=== PATIENT | male | born 1955 | race Caucasian/White ===

== ENCOUNTER 2022-03-03 09:04 | Outpatient (CLI) | payer MEDICARE, BC, SELFPAY ==
--- NOTE | ~2022-03-03 | US_ITS ---
EXAMINATION: US aorta [facility] DATE: 03/03/2022 09:58 INDICATION: Encounter for screening for cardiovascular disorder. Abdominal aortic aneurysm screening. TECHNIQUE: Grayscale, color Doppler, and pulsed Doppler images of the aorta and common iliac arteries were obtained. COMPARISON: None. FINDINGS: The proximal aorta measures 2.0 cm. The mid aorta measures 2.1 cm. The distal aorta measures 2.8 cm. Small amount of nonhemodynamically significant atherosclerotic plaque along the abdominal aorta. The right common iliac artery measures 1.1 cm. The left common iliac artery measures 0.9 cm. IMPRESSION: 1. Nonhemodynamically significant atherosclerotic plaque along the normal caliber abdominal aorta. No aneurysm. Reviewed, dictated and finalized at location A. IMPRESSION: 1. Nonhemodynamically significant atherosclerotic plaque along the normal calib er abdominal aorta. No aneurysm.
--- NOTE | ~2022-03-03 | CT_ITS ---
EXAMINATION: CT lung screening DATE: 03/03/2022 09:24 INDICATION: Personal history of nicotine dependence, current smoker with 47 pack year history TECHNIQUE: Computed tomography (CT) of the chest was performed without intravenous contrast. The dose -length product (DLP) was 78.67 mGy-cm. Automated exposure control and iterative reconstruction techn [employer] were employed. COMPARISON: None FINDINGS: There is mild emphysema. Calcified pulmonary nodules are consistent with old granulomatous disease. The lungs are free of acute opacities. No pathologically enlarged thoracic lymph nodes are i dentified. The heart size is normal. Calcified coronary artery atherosclerosis is noted. There is mil d thoracic spondylosis. Cholelithiasis is noted. IMPRESSION: 1. Lung-RADS category 1: Negative. Continue annual screening with noncontrast low-dose chest CT in 12 months. Reviewed, dictated and finalized at location A. IMPRESSION: 1. Lung-RADS category 1: Negative. Continue annual screening with noncontrast l ow-dose chest CT in 12 months.
== END 2022-03-03 09:05 | disposition home or self-care (01) ==
LOC: ANHIMG 09:09
PROVIDERS: PCP Family Medicine; Visit Provider Family Medicine
DX: Z12.2 Encounter for screening for malignant neoplasm of respiratory organs (principal); F17.210 Nicotine dependence, cigarettes, uncomplicated; Z13.6 Encounter for screening for cardiovascular disorders
CPT/HCPCS: 71271; 76706

== ENCOUNTER 2022-08-14 10:01 | Outpatient (CLI) | payer MEDICARE, BC, SELFPAY ==
[2022-08-14 20:41] LABS: Alanine Aminotransferase 18 U/L (6-50); Albumin Level 4.4 g/dL (3.5-5.1); Alkaline Phosphatase 58 U/L (38-126); Anion Gap 15 mmol/L (8-16); Aspartate Amino Transferase 21 U/L (17-59); Bilirubin,Total 0.3 mg/dL (0.2-1.3); Blood Urea Nitrogen 18 mg/dL (9-20); Calcium 9.4 mg/dL (8.4-10.2); Carbon Dioxide 27 mmol/L (22-30); Chloride 100 mmol/L (98-107); Cholesterol 152 mg/dL (0-200); Estimated Glomerular Filt Rate 51; Glucose 80 mg/dL (65-110); HDL Direct 37 mg/dL; Potassium 3.4 mmol/L (3.4-5.0); Sodium 142 mmol/L (137-145); Triglycerides 149 mg/dL (<150)
[2022-08-14 20:52] LABS: LDL Cholesterol Direct 84 mg/dL
== END 2022-08-14 10:02 | disposition home or self-care (01) ==
LOC: ANHGOSHLAB 10:04
PROVIDERS: PCP Family Medicine; Visit Provider Nurse Practitioner Family
DX: I10 Essential (primary) hypertension (principal)
CPT/HCPCS: 36415; 80053; 80061

== ENCOUNTER 2022-08-20 14:13 | Outpatient (RCR) | payer MEDICARE, BC, SELFPAY ==
--- NOTE | 2022-08-20 16:53 | PTOPEVDC ---
Assessment and note entered by Vasyl Silva, PT Thank you for referring Clarke Douglas to [facility].? An evaluation has been completed. No further treatment is needed. Evaluation Information Assessment Status Evaluation Diagnosis unspecified abnormalities of gait and mobility Subjective Information Patient and disagree about extent of issues. They both agree that patient has not fallen, with saying he has stumbles that he catches himself and patient stating he only stumbles when the dog's leash gets wrapped around him. Reported Pain Level Pain Score 0: Self Report Assessment PT Clinical Summary Clarke is a 67 year old male coming into the clinic with a diagnosis of unspecified abnormalities of gait and mobility. Patient feels he is fine, but and reportedly daughter is worried that he walks very slow and is a falling risk. Patient able to correctly identify 9/10 Semes Luis Fernando filament locations on ELISHA feet, Scores a 25/28 on his Tinetti, a 25/26 on his dynamic gait index which would be indicative of a low fall risk. Patient is walking almost 500' slower than is normal based on his 6 minute walk test, but demonstrates good feet clearance step through gait pattern, although does veer to the R when walking. Patient and family are supposed to go to [place] next week for the winter season, the next 4 months. Physical therapy gave patient and recommendations to keep walking and if concerned try single limb stance exercises. Did not pick up driver patient. Plan of Care PT Services Indicated No Treatment Frequency and evaluation only Duration
== END 2022-08-21 16:35 | disposition home or self-care (01) ==
LOC: ANHGOSHPT 14:13
PROVIDERS: PCP Family Medicine; Visit Provider Nurse Practitioner Family
DX: R26.9 Unspecified abnormalities of gait and mobility (principal)
CPT/HCPCS: 97161

== ENCOUNTER 2024-02-18 12:44 | Outpatient (CLI) | payer MEDICARE, BC, SELFPAY ==
[2024-02-18 19:22] LABS: Basophils Absolute Auto 0.1 K/mm3 (0.0-0.1); Eosinophils Absolute Auto 0.1 K/mm3 (0-0.3); Eosinophils Percent Auto 1.4 % (0-4.4); Hematocrit 45.5 % (42.0-52.0); Hemoglobin 14.8 g/dL (14.0-18.0); Immature Granulocyte Absolute 0.01 K/mm3 (0.00-0.031); Immature Granulocyte Percent A 0.1 % (0-0.5); Lymphocytes Absolute Auto 2.84 K/mm3 (0.9-3.2); Mean Corpuscular HGB Conc 32.5 g/dl (32-36); Mean Corpuscular Hemoglobin 31.2 pg (26-34); Mean Platelet Volume 9.2 fl (7.4-10.4); Monocytes Absolute Auto 0.7 K/mm3 (0.1-0.6); Monocytes Percent Auto 7.5 % (2.6-8.5); Neutrophils Absolute Auto 5.7 K/mm3 (1.3-6.7); Platelet Count Result 380 k/mm3 (150-375); Red Blood Count 4.74 M/mm3 (4.6-6.20); White Blood Count 9.5 K/mm3 (4.5-10.0)
[2024-02-18 21:56] LABS: Vitamin D 25 Hydroxy 53.9 ng/mL
[2024-02-18 22:44] LABS: Alanine Aminotransferase 16 U/L (6-50); Albumin Level 4.4 g/dL (3.5-5.1); Alkaline Phosphatase 78 U/L (38-126); Anion Gap 8 mmol/L (4-12); Aspartate Amino Transferase 46 U/L (17-59); Bilirubin,Total 0.5 mg/dL (0.2-1.3); Blood Urea Nitrogen 20 mg/dL (9-20); Calcium 9.6 mg/dL (8.4-10.2); Carbon Dioxide 26 mmol/L (22-30); Chloride 105 mmol/L (98-107); Cholesterol 151 mg/dL (0-200); Estimated Glomerular Filt Rate 51; Glucose 83 mg/dL (65-110); HDL Direct 45 mg/dL; Potassium 4.4 mmol/L (3.4-5.0); Sodium 139 mmol/L (137-145); Triglycerides 78 mg/dL (<150)
[2024-02-18 22:56] LABS: LDL Cholesterol Direct 86 mg/dL
[2024-02-18 23:12] LABS: Prostate Specific Antigen 2.8 ng/mL (< OR = 4.0)
== END 2024-02-18 12:45 | disposition home or self-care (01) ==
PROVIDERS: PCP Family Medicine; Visit Provider Family Medicine
DX: I10 Essential (primary) hypertension (principal); Z12.5 Encounter for screening for malignant neoplasm of prostate; E55.9 Vitamin D deficiency, unspecified; E53.8 Deficiency of other specified B group vitamins
CPT/HCPCS: 36415; 80053; 80061; 82306; 82607; 84153; 84443; 85025; G0103

== ENCOUNTER 2024-02-18 16:04 | Outpatient (CLI) | payer MEDICARE, BC, SELFPAY ==
--- NOTE | ~2024-02-18 | CT_ITS ---
EXAMINATION:CT lung screening DATE: 02/18/2024 16:53 INDICATION: Personal history of nicotine dependence. Current smoker with 30 pack year history. TECHNIQUE: Computed tomography (CT) of the chest was performed without intravenous contrast. Automate d exposure control and iterative reconstruction technique were employed. The dose-length product (DLP ) was 85.95 mGy-cm. COMPARISON: Chest CT 03/03/2022 FINDINGS: Calcified bilateral pulmonary nodules are consistent with old granulomatous disease. There is a 4 mm nodule at left major fissure. No pleural effusion. The heart size is normal. There are laz nary artery calcifications. No pericardial effusion. There is a 2.0 cm mass measuring low attenuation in left adrenal gland, consistent with an adenoma. There is a gallstone in the gallbladder, which is normal in size. There is an old healed right rib fracture. There is severe cervical spondylosis and mild thoracic spondylosis. There is a chronic compression fracture of T3. IMPRESSION: 1. Lung-RADS category 2: Benign appearance or behavior. Continue annual screening with noncontrast lo w-dose chest CT in 12 months. Reviewed, dictated and finalized at location E. IMPRESSION: 1. Lung-RADS category 2: Benign appearance or behavior. Continue annual screeni ng with noncontrast low-dose chest CT in 12 months.
== END 2024-02-18 16:05 | disposition home or self-care (01) ==
LOC: ANHIMG 16:05
PROVIDERS: PCP Family Medicine; Visit Provider Family Medicine
DX: Z12.2 Encounter for screening for malignant neoplasm of respiratory organs (principal); Z87.891 Personal history of nicotine dependence
CPT/HCPCS: 36415; 71271; 80053; 80061; 82306; 82607; 84153; 84443; 85025; G0103

== ENCOUNTER 2024-09-16 10:30 | Outpatient (CLI) | payer MEDICARE, BC, SELFPAY ==
--- NOTE | ~2024-09-16 | MR_ITS ---
EXAMINATION: MR brain/brain stem wo con DATE: 09/16/2024 10:11 INDICATION: Transient cerebral ischemic attack TECHNIQUE: Magnetic resonance imaging (MRI) of the brain and brainstem was performed without intraven ous contrast. Sequences included sagittal and axial T1-weighted SE, axial diffusion-weighted FS SE, a xial 3D SWAN, axial T2-weighted FLAIR, and axial T2-weighted FSE. Postcontrast axial and coronal T1-w eighted SE was obtained. Apparent diffusion coefficient (ADC) maps were created. COMPARISON: 01/04/2019 FINDINGS: Unchanged large region of encephalomalacia involving the right frontal, parietal, temporal and occipi tariq lobes as well as the underlying right insula and lateral aspect of the right basal ganglia and th e vascular distribution of the right middle cerebral artery consistent with chronic infarct. There ar e no areas of restricted diffusion to suggest acute infarction. No intracranial hemorrhage or abnorma l intracranial mass lesion. No significant change in scattered areas of nonspecific increased T2-weig hted signal intensity in the cerebral white matter, predominantly involving the deep and periventricu lar white matter. There are no intraparenchymal signal abnormalities seen on the other pulse sequence s. Expected dilation of the right lateral ventricle. Remaining ventricles are normal. There are no ab normal extra-axial fluid collections. Flow voids are seen in the cerebral arteries on the T2-weighted sequences consistent with their expected patency. There is complete filling of the left maxillary an d left ethmoid sinuses with additional mild mucosal thickening the right maxillary, right ethmoid and bilateral sphenoid sinuses. Thickening of the maki of the left maxillary sinus consistent with float phlebotomist iwona sinusitis. There is also chronic expansion of the left maxillary sinus with medial bowing of the medial wall of the sinus consistent with a mucocele. Small left mastoid effusion. Visualized orbits a nd soft tissues are otherwise unremarkable. IMPRESSION: 1. Large chronic infarct involving the expected vascular distribution of the right middle cerebral ar sakshi. No acute intracranial process. 2. Chronic sinusitis with likely left maxillary mucocele. Reviewed, dictated and finalized at location B. R D INTERNSHIP IMPRESSION: 1. Large chronic infarct involving the expected vascular distribution of the ri ght middle cerebral artery. No acute intracranial process. 2. Chronic sinusitis with likely left maxillary mucocele.
--- NOTE | ~2024-09-16 | US_ITS ---
EXAMINATION: US carotid duplex BI DATE: 09/16/2024 09:46 INDICATION: Carotid atherosclerosis and stenosis. Transient cerebral ischemic attack. Chronic stroke. TECHNIQUE: Grayscale, color Doppler, and pulsed Doppler images of the cervical carotid arteries were obtained. The degree of vessel stenosis is placed in one of the following categories: normal, <50%, 5 0-69%, >=70% but less than near-occlusion, near-occlusion, or total occlusion. Note that percent sten osis relative to normal distal artery lumen diameter is indirectly measured from velocity measurement s as described by Gaurav, et al. Radiology 2003; 229:340-346. COMPARISON: 10/29/2013 FINDINGS: RIGHT: The right common carotid artery (CCA) peak systolic velocity (PSV) is 64 cm/s. The right internal car otid artery (ICA) PSV is 50 cm/s. The right ICA end-diastolic velocity (EDV) is 20 cm/s. The right IC A/CCA PSV ratio is 0.8. Grayscale and color Doppler images yield an estimate of <50% diameter reducti on from plaque in the ICA. The external carotid artery (ECA) PSV is 48 cm/s. There is antegrade flow in the right vertebral artery. LEFT: The left CCA PSV is 65 cm/s. The left ICA PSV is 74 cm/s. The left ICA EDV is 24 cm/s. The left ICA/C CA PSV ratio is 1.1. Grayscale and color Doppler images yield an estimate of <50% diameter reduction from plaque in the ICA. The ECA PSV is 55 cm/s. There is antegrade flow in the left vertebral artery. IMPRESSION: 1. <50% stenosis in the right internal carotid artery. 2. <50% stenosis in the left internal carotid artery. Reviewed, dictated and finalized at location B. TH OCCUPATIONS TEACHER
[2024-09-16 11:35] LABS: Alanine Aminotransferase 14 U/L (6-50); Albumin Level 4.4 g/dL (3.5-5.1); Alkaline Phosphatase 86 U/L (38-126); Anion Gap 9 mmol/L (4-12); Aspartate Amino Transferase 23 U/L (17-59); Bilirubin,Total 0.7 mg/dL (0.2-1.3); Blood Urea Nitrogen 17 mg/dL (9-20); Calcium 9.3 mg/dL (8.4-10.2); Carbon Dioxide 28 mmol/L (22-30); Chloride 103 mmol/L (98-107); Cholesterol 122 mg/dL (0-200); Estimated Glomerular Filt Rate 55; Glucose 84 mg/dL (65-110); HDL Direct 44 mg/dL; Potassium 4.3 mmol/L (3.4-5.0); Sodium 140 mmol/L (137-145); Triglycerides 77 mg/dL (<150)
[2024-09-16 11:45] LABS: LDL Cholesterol Direct 53 mg/dL
[2024-09-16 16:11] LABS: Hemoglobin A1C 5.8 % (<5.7)
== END 2024-09-16 10:31 | disposition home or self-care (01) ==
PROVIDERS: PCP Family Medicine; Visit Provider Family Medicine
DX: I65.23 Occlusion and stenosis of bilateral carotid arteries (principal); J32.9 Chronic sinusitis, unspecified; E78.5 Hyperlipidemia, unspecified; I10 Essential (primary) hypertension; R73.9 Hyperglycemia, unspecified; Z86.79 Personal history of other diseases of the circulatory system
CPT/HCPCS: 36415; 70551; 80053; 80061; 83036; 84443; 93880

== ENCOUNTER 2025-04-12 15:07 | Outpatient (CLI) | payer MEDICARE, BC, SELFPAY ==
--- NOTE | ~2025-04-12 | MR_ITS ---
EXAMINATION: MR brain/brain stem wo con DATE: 04/12/2025 15:52 INDICATION: Stroke due to embolism of the right middle cerebral artery TECHNIQUE: Magnetic resonance imaging (MRI) of the brain and brainstem was performed without intraven ous contrast. Sequences included sagittal and axial T1-weighted SE, axial diffusion-weighted FS SE, a xial 3D SWAN, axial T2-weighted FLAIR, and axial T2-weighted FSE. Apparent diffusion coefficient (ADC ) maps were created. COMPARISON: Brain MR dated 09/16/2024 FINDINGS: Unchanged large region of encephalomalacia involving the right frontal, parietal, temporal and occipi tariq lobes as well as the underlying right insula and lateral aspect of the right basal ganglia in the vascular distribution of the right middle cerebral artery consistent with chronic infarct. There are no areas of restricted diffusion to suggest acute infarction. No intracranial hemorrhage or abnormal intracranial mass lesion. No significant change in scattered areas of nonspecific increased T2-weigh vita signal intensity in the cerebral white matter. There are no intraparenchymal signal abnormalities seen on the other pulse sequences. Ex vacuo dilation of the right lateral ventricle. Remaining ventr icles are normal. There are no abnormal extra-axial fluid collections. Flow voids are seen in the cer ebral arteries on the T2-weighted sequences consistent with their expected patency. There is complete filli ng of the left maxillary and left ethmoid sinuses with additional mild mucosal thickening in the righ t maxillary and right ethmoid sinuses. Thickening of the maki of the left maxillary sinus consistent with chronic sinusitis. There is also chronic expansion of the left maxillary sinus with medial bowi ng of the medial wall of the sinus consistent with a mucocele. Chronic small left mastoid effusion. V isualized orbits and soft tissues are otherwise unremarkable. IMPRESSION: 1. Large chronic infarct involving the expected vascular distribution of the right middle cerebral ar sakshi. No acute intracranial process. 2. Chronic sinusitis with likely left maxillary mucocele. Reviewed, dictated and finalized at location B. IMPRESSION: 1. Large chronic infarct involving the expected vascular distribution of the ri ght middle cerebral artery. No acute intracranial process. 2. Chronic sinusitis with likely left maxillary mucocele.
--- OUTSIDE RECORDS SUMMARY | 2025-04-12 17:01 | XMS_ITS | Clinical Summary ---
Author Organization [facility] Address [address] [place] [address] Care Team Providers Care Jewel Hole Gauger Name Role Phone Dhruv Medina MD Primary Care Provider Source Comments [facility],non-owned Affiliates and Associated Physician Practices is amultiple site organization consisting of ambulatory clinics and hospital sitesin [place], [place], [place] and [place]. This disclosure is being madepursuant to the Care Everywhere program and may not contain all information available regarding this patient. Last updated 18.[facility] Allergies Active Allergy Reactions Criticality Noted Date Comments Peppers Other 10/10/2021 Intractable hiccups Hmg-Coa-R Inhibitors Other 03/30/2025 Tremor and facial droop Medications * This document contains information received from the source organization and may not represent a complete record from that organization. * Be aware that medications may not be up to date on this document. Alwaysverify current medications with the patient. TAMSULOSIN HCL PO Take 0.4 mg by mouth once daily Active fluticasone hfa 110 (FLOVENT HFA 110) 110 MCG/ACT inhaler Inhale 2 (two) puffs by mouth 2 times daily Only using once daily Active ALBUTEROL SULFATE HFA IN Inhale 8.5 g by mouth every 4 hours as needed Active lisinopril (PRINIVIL; ZESTRIL) 10 MG tablet Take 1 (one) tablet by mouth once daily Active hydroCHLOROthia zide (MICROZIDE) 12.5 MG capsule Take 1 (one) capsule by mouth once daily Active aspirin (ASPIRIN) 325 MG tablet Take 1 (one) tablet by mouth once daily Active Multiple Vitamins-Minera ls (CENTRUM SILVER) TABS Take 1 (one) tablet by mouth daily with food Active levETIRAcetam (Keppra) 500 MG tabletIndicatio ns:Cerebrovascu lar accident (CVA) due to embolism of right middle cerebral artery (HCC) Take 1 (one) tablet by mouth 2 times daily 180 tablet 1 Active loratadine (Claritin) 10 MG tablet Take 1 (one) tablet by mouth once daily as needed for Runny Nose or Allergies Active Active Problems Problem Noted Date Diagnosed Date Memory loss 04/07/2024 Cerebrovascular accident (CV A) due to embolism of right middle cerebral artery 10/10/2021 Shortness of breath 03/05/2018 Encounters * This document contains information received from the source organization and may not represent a complete record from that organization. Date Type Department Care Team Description 04/10/2025 Travel 03/30/2025 11:00 AM CDT Office Visit [facility] - Neurology [address] [place] [phone] German Manzanares MD Cerebrovascular accident (CVA) due to embolism of right middle cerebral artery (HCC) (Primary Dx) 03/30/2025 Travel from Last 3 Months Immunizations Immunization Administration Dates Next Due INFLUENZA VACCINE 07/27/2012 TDAP (7yrs+) 03/04/2018,09/29/2014 Social History Tobacco Use Types Packs/Day Years Used Date Smoking Tobacco: Every Day Cigarettes 0.5 47 Smokeless Tobacco: Never Tobacco Cessation:Ready to Q uit: Not Asked; Counseling Given: Not Answered Alcohol Use Standard Drinks/Week Comments No 0 (1 standard drink = 0.6 oz pur e alcohol) AUDIT-C Answer Date Recorded Q1: How often do you have a drink containing alc ohol? Never 12/19/2021 Average Number of Drinks Not on file 02/24/2 022 Q3: How often do you have si x or more drinks on one occasion? Never 12/19/2021 Sex and Gender Information Value Date Recorded Sex Assigned at Not on file Legal Sex Male 9:22 PM CDT Gender Identity Not on file Sexual Orientation Not on file Last Filed Vital Signs Vital Sign Reading Time Taken Comments Blood Pressure 114/73 03/30/2025 10:51 AM CDT Pulse 70 03/30/2025 10:51 AM CDT Temperature 36.3 C (97.3 F) 02/13/2022 10:43 AM CDT Respiratory Rate 16 03/30/2025 10:51 AM CDT Oxygen Saturation 97% 02/13/2022 10:43 AM CDT Inhaled Oxygen Concentration - - Weight 65.8 kg (145 lb) 03/30/2025 10:51 AM CDT Height 172.7 cm (5' 8) 02/13/2022 10:43 AM CDT Body Mass Index 22.05 02/13/2022 10:43 AM CDT Plan of Treatment Upcoming Encounters Date Type Department Care Team (Late st Contact Info) Description 04/05/2026 10:00 AM CDT Office Visit [facility] - Neurology [address] [place] [address], [place] [phone] German Manzanares MD [address] [place] [address] [place] [phone] Health Maintenance Due Date Last Done Comments COLOGUARD (AGES 45-75) - COL ON CA SCREENING 1955 COLON MONITORING 1955 COLONOSCOPY - COLON CA SCREENING 1955 CT COLONOGRAPHY - COLON CA SCREENING 1955 Colorectal Cancer Screening 1955 FIT - COLON CA SCREENING 1955 FLEX SIG - COLON CA SCREENING 1955 LIPID TESTING 1955 MEDICARE AWV 12 MONTHS 1955 HEPATITIS C SCREENING 08/04/1974 PNEUMOCOCCAL VACCINE 50+ (1 of 2 - PCV) 1975 LUNG CANCER SCREENING 2006 ZOSTER VACCINE (1 of 2) 2006 AAA SCREENING 2021 COVID-19 VACCINE (1 - 2023-2 5 season) 2024 DEPRESSION SCREENING 10/26/2024 INFLUENZA VACCINE (Season Ended) 2025 07/27/2012 DTAP/TDAP/TD VACCINES (3 - T d or Tdap) 03/04/2028 03/04/2018, 09/29/2014 Respiratory Syncytial Virus (RSV) Vaccine Pt: or over 60 yrs (1 - 1-dose 75+ series) 2031 HEPATITIS B VACCINE Aged Out No longe r eligible based on patient's age to complete this topic HIB VACCINE Aged Out No longer eligi ble based on patient's age to complete this topic HPV VACCINE Aged Out No longer eligi ble based on patient's age to complete this topic MENINGOCOCCAL (Group B) VACCINE SHARED DECISION-MAKING Aged Out No longer eligible based on patient's age to complete this topic MENINGOCOCCAL GROUPS A/C/Y/W VACCINE Aged Out No longer eligible b ased on patient's age to complete this topic Insurance MEDICARE [facility] MEDICARE [facility] Care Teams Jewel Hole Gauger Relationship Specialty Start Date End Date Dhruv Medina MD [address] [place] [address] PCP - General Family Medicine 03/04/18
--- OUTSIDE RECORDS SUMMARY | 2025-04-12 17:01 | XMS_ITS | CONTINUITY OF CARE DOCUMENT ---
Author Name georgiana stoner Address Unknown Organization [facility] Address [address] [place] [address] Phone [phone] Care Team Providers Care Mineral Technologist Name Role Phone Sulaiman BONILLA, Cirilo Weir Unavailable [phone] MAGAN BONILLA, DAHLIA Sanchez Unavailable [phone] ADRIAN BOUCHER III, MD Unavailable INSURANCE PROVIDERS Payer name Policy type / Coverage type [place] red republican ID UNICARE Other [id number]
== END 2025-04-12 15:08 | disposition home or self-care (01) ==
PROVIDERS: PCP Family Medicine
DX: I63.411 Cerebral infarction due to embolism of right middle cerebral artery (principal); J32.9 Chronic sinusitis, unspecified
CPT/HCPCS: 70551

== ENCOUNTER 2025-09-04 15:43 | Outpatient (CLI) | payer MEDICARE, BC, SELFPAY ==
--- OUTSIDE RECORDS SUMMARY | 2025-09-04 15:46 | XMS_ITS | Clinical Summary ---
Author Organization [facility] Address [address] [place] [address] Care Team Providers Care Gas Specialist Name Role Phone Dhruv Medina MD Primary Care Provider Source Comments [facility],non-owned Affiliates and Associated Physician Practices is amultiple site organization consisting of ambulatory clinics and hospital sitesin [place], [place], [place] and [place]. This disclosure is being madepursuant to the Care Everywhere program and may not contain all information available regarding this patient. Last updated 18.[facility] Allergies Active Allergy Reactions Criticality Noted Date [...] tablet by mouth daily with food Active loratadine (Claritin) 10 MG tablet Take 1 (one) tablet by mouth once daily as needed for Runny Nose or Allergies Active levETIRAcetam (Keppra) 500 MG tabletIndicatio ns:Cerebrovascu lar accident (CVA) due to embolism of right middle cerebral artery (HCC) Take 1 (one) tablet by mouth 2 times daily 180 tablet 1 Active Active Problems Problem Noted Date Diagnosed Date Memory loss 04/07/2024 Cerebrovascular accident (CV A) due to embolism of right middle cerebral artery 10/10/2021 Shortness of breath 03/05/2018 Immunizations Immunization Administration Dates Next Due INFLUENZA [...] Average Number of Drinks Not on file 022 Q3: How often do you have [...] Office Visit [facility] - Neurology [address] [place] [address], [place] [address] German Manzanares MD [address] [place] [address] [place] [address] Health Maintenance Due Date Last Done Comments [...] (1 of 2) 2006 AAA SCREENING 2021 DEPRESSION SCREENING 10/26/2024 COVID-19 VACCINE (1 - 2023-2 5 season) 2025 INFLUENZA VACCINE (#1) 2025 07/27/2012 DTAP/TDAP/TD VACCINES (3 - T [...] age to complete this topic Insurance MEDICARE [facility] MEDICARE ANTHEM Care Teams Gas Specialist Relationship Specialty Start Date End Date Dhruv Medina MD [address] [place] [address] PCP - General Family Medicine 03/04/18
[2025-09-04 18:48] LABS: Hematocrit 45.9 % (42.0-52.0); Hemoglobin 15.0 g/dL (14.0-18.0); Immature Granulocyte Percent A 0.3 % (0-0.5); Lymphocytes Absolute Auto 2.72 K/mm3 (0.9-3.2); Mean Corpuscular HGB Conc 32.7 g/dl (32-36); Mean Corpuscular Hemoglobin 32.2 pg (26-34); Mean Corpuscular Volume 98.5 fl (80-100); Nucleated Red Blood Cells Absolute Auto 0.000 K/mm3 (0.0-0.012); Nucleated Red Blood Cells Perc 0.0 % (0.0-0.2); Platelet Count Result 337 k/mm3 (150-375); Red Blood Count 4.66 M/mm3 (4.6-6.20); White Blood Count 9.1 K/mm3 (4.5-10.0)
[2025-09-04 19:14] LABS: Alanine Aminotransferase 14 U/L (6-50); Albumin Level 4.4 g/dL (3.5-5.1); Alkaline Phosphatase 74 U/L (38-126); Anion Gap 5 mmol/L (4-12); Aspartate Amino Transferase 44 U/L (17-59); Bilirubin,Total 0.4 mg/dL (0.2-1.3); Blood Urea Nitrogen 14 mg/dL (9-20); Calcium 9.3 mg/dL (8.4-10.2); Carbon Dioxide 31 mmol/L (22-30); Chloride 102 mmol/L (98-107); Cholesterol 170 mg/dL (0-200); Estimated Glomerular Filt Rate 50; Glucose 93 mg/dL (65-110); HDL Direct 46 mg/dL; Potassium 4.8 mmol/L (3.4-5.0); Sodium 138 mmol/L (137-145); Total Protein 7.8 g/dL (6.3-8.2); Triglycerides 95 mg/dL (<150)
[2025-09-04 19:29] LABS: Thyroid Stimulating Hormone Reflex 2.320 uIU/mL (0.465-4.68)
[2025-09-04 19:50] LABS: Prostate Specific Antigen 3.5 ng/mL (< OR = 4.0)
[2025-09-04 20:08] LABS: Vitamin B12 929.0 pg/mL (239-931)
[2025-09-04 20:11] LABS: Hemoglobin A1C 5.6 % (<5.7)
== END 2025-09-04 15:44 | disposition home or self-care (01) ==
LOC: ANHGOSHLAB 15:44
PROVIDERS: PCP Family Medicine; Visit Provider Family Medicine
DX: E78.5 Hyperlipidemia, unspecified (principal); I10 Essential (primary) hypertension; E53.8 Deficiency of other specified B group vitamins; E55.9 Vitamin D deficiency, unspecified; R56.9 Unspecified convulsions; R73.03 Prediabetes; Z00.00 Encounter for general adult medical examination without abnormal findings; Z12.5 Encounter for screening for malignant neoplasm of prostate
CPT/HCPCS: 36415; 80053; 80061; 82306; 82607; 83036; 84153; 84443; 85025; G0103

== ENCOUNTER 2025-10-06 09:39 | Outpatient (CLI) | payer MEDICARE, BC, SELFPAY ==
--- NOTE | ~2025-10-06 | NM_ITS ---
EXAMINATION: NM royce stress w perfusion DATE: 10/06/2025 12:10 INDICATION: Dyspnea TECHNIQUE: Rest images were obtained following intravenous administration of 9.55 mCi Tc99m tetrofosmin (Myoview). The patient was infused intravenously with Lexiscan (Regadenoson). Then, repeat mCi Tc99m tetrofosmin (Myoview) was administered intravenously, and stress images were obtained. Data was re constructed into short axis and horizontal and vertical long axis SPECT images. Gated SPECT images were also obtained. COMPARISON: None. FINDINGS: There is no definite reversible or fixed perfusion abnormality to suggest ischemia or infarction. There is normal left ventricular chamber size, wall motion and ejection fraction. Left ventricular ejection fraction measures >70%. IMPRESSION: 1. Normal myocardial perfusion at rest and during stress. 2. Left ventricular ejection fraction measuring >70%. Reviewed, dictated and finalized at location A. ESS ANALYST
--- NOTE | 2025-10-06 09:45 | EST_ITS ---
Patient Info Name: Clarke Douglas Age: 70 years : 1955 Gender: Male Ht: 67 in Wt: 144 lbs BSA: 1.76 m2 HR: 57 bpm BP: 123 / 67 mmHg Exam Date: 10/06/2025 9:45 AM Patient Status: O Admit Date: 10/06/2025 Exam Type: CA stress royce w NM A pharmacological stress test was performed. Staff Referring Physician: Jono Medina Attending Provider: Jono Medina Exercise Technologist: Elizabeth Buchanan Exercise Physician: Bishop Rm DO Summary 1. 1. Negative lexiscan stress test for ischemic ST changes by ECG criteria. 2. 2. Stable hemodynamics throughout the test. 3. 3. Nuclear scan to follow and will be reported separately. Please correlate with it. 4. 4. Patient informed of the above results. Protocol: Lexiscan Stress ECG Details Stage: REST Duration (min): 1 min : 1 sec HR (bpm): 56 SBP (mmHg): 123 DBP (mmHg): 67 Stage: REST Duration (min): 4 min : 15 sec HR (bpm): 57 SBP (mmHg): 123 DBP (mmHg): 67 Stage: STAGE 1 Duration (min): 1 min : 0 sec HR (bpm): 84 SBP (mmHg): 130 DBP (mmHg): 81 Stage: RECOVERY Duration (min): 1 min : 0 sec HR (bpm): 106 SBP (mmHg): 130 DBP (mmHg): 81 Stage: RECOVERY Duration (min): 2 min : 0 sec HR (bpm): 92 SBP (mmHg): 130 DBP (mmHg): 81 Stage: RECOVERY Duration (min): 3 min : 0 sec HR (bpm): 90 SBP (mmHg): 127 DBP (mmHg): 63 Stage: RECOVERY Duration (min): 3 min : 21 sec HR (bpm): 89 SBP (mmHg): 127 DBP (mmHg): 63 Rest HR: 57 bpm Peak HR: 106 bpm Rest Sys BP: 123 mmHg Peak Sys BP: 130 mmHg Max Pred HR: 151 bpm % Max Pred HR: 70 % Target HR: 128 bpm Max RPP: 13,780 bpm*mmHg Termination Reason: Completed protocol Cardiac Symptoms: Shortness of breath Total Time: 1 min : 0 sec Rest Nieves BP: 67 mmHg Peak Nieves BP: 81 mmHg Total Dose: 0.4 mg Resting ECG Sinus bradycardia. Stress ECG No ST changes. Arrhythmias None. Report Signatures
== END 2025-10-06 09:40 | disposition home or self-care (01) ==
PROVIDERS: PCP Family Medicine; Visit Provider Family Medicine
DX: R06.09 Other forms of dyspnea (principal)
CPT/HCPCS: 78452; 93017; A9502; J2785